=== PATIENT | female | born 1965 | race Caucasian/White ===

== ENCOUNTER 2017-07-12 14:35 | Emergency (ER) | payer OTHER, BC ==
[~2017-07-12] VITALS: Ht 165.1 cm; Wt 72.6 kg
--- OUTSIDE RECORDS SUMMARY | 2017-07-12 14:49 | External Medical Summary Rpt | CCD ---
Demographics Preferred Language Andorran Marital Status Unknown Oriental Orthodox Affiliation Unknown Race Unknown Ethnic Group Unknown Author Author , PIERRE JAY Address Unknown Phone Immunization No patient found.
--- OUTSIDE RECORDS SUMMARY | 2017-07-12 14:49 | External Medical Summary Rpt ---
Author Author PIERRE Lott, [employer] Organization [employer] Address Unknown Phone Unavailable
--- OUTSIDE RECORDS SUMMARY | 2017-07-12 14:49 | External Medical Summary Rpt | CCD ---
Author Author [employer] Organization [employer] Address Unknown Phone Unavailable Purpose Continuity of Care Document - through 2016
--- OUTSIDE RECORDS SUMMARY | 2017-07-12 14:49 | External Medical Summary Rpt | CCD ---
Author Author , PIERRE JAY Address Unknown Phone Purpose Continuity of Care Document - through 2016
--- OUTSIDE RECORDS SUMMARY | 2017-07-12 14:49 | External Medical Summary Rpt | CCD ---
Demographics Preferred Language Albanian Marital Status Unknown Taoist Affiliation Unknown Race Unknown Ethnic Group Unknown Author Author , PIERRE JAY Address Unknown Phone Immunization No patient found.
[2017-07-12] MEDS ORDERED: LISINOPRIL 10MG10 MG PO (15:22)
--- NOTE | 2017-07-12 15:49 | RADIOLOGY REPORT PS360 ---
[id number] (RING)-3 VIEWS HISTORY: Post traumatic pain and bruising INJURIED AT WORK ORDERING PHYSICIAN: ZULMA GONZALEZ APRN PATIENT AGE: 52 years COMPARISON: None FINDINGS: Nondisplaced oblique fracture involves the tuft of the distal phalanx of the fourth digit. Otherwise negative. IMPRESSION: Nondisplaced oblique fracture tuft of distal phalanx of fourth digit
--- NOTE | 2017-07-12 15:59 | Urgent Treatment Center Report ---
History of Present Issue Date/Time Seen by Provider 07/12/17 5948 Visit Reason Pt arrived:Walked Presenting Problem:PT STATES SHE SMASHED HER FINGER IN THE DOOR AT WORK ON 07/11. Location if Accident:Work Onset of symptoms date/time:07/11/17/ or onset unknown for:MEDICAL HX UNKNOWN Have you (or family members/close friends) recently traveled outside the [place]? N If Yes, where/when: Have you had exposure to infectious disease within the past month? TB? Other? Specify: c/o left 4th digit pain, swelling, bruising. Pt is right handed. While at work yesterday, she closed a heavy door and smashed only left 4th digit in door around 2:15. Last night finger throbbing w/ blood present under nail. spouse drilled hole in fingernail and immediate relief. Reports bled for around 2 hours and has bled intermittent since. Tylenol helped yesterday. Hasn't taken anything since last night. 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 Based on swelling and bruising, it was her coworkers that enc visit today. Pt primarily here for xray. Denies change in temp or sensation of finger. "slightly" limited ROM "only in that first knuckle and up though" Source patient Exam Limitations no limitations ALLERGIES Coded Allergies: No Known Allergies (07/12/17) Home Medications Reported Medications LISINOPRIL (Lisinopril) 10 MG PO DAILY History Medical History Immunization HX DT/Tetanus 5-10 Years Ago Surgical Hx Previous Surgery?N Social History Smoking Hx Smoker: Never Smoker Tobacco: No Alcohol Alcohol: No Review of Systems All Other Systems Reviewed and Negative (as appropriate for CC) Constitutional denies fever Musculoskeletal see HPI Skin see HPI Psychiatric/Neurological denies numbness, denies tingling Physical Exam Vital Signs Vital Signs Date Time Temp Pulse Resp B/P Pulse O2 O2 Flow FiO2 Ox Delivery Rate 07/12 1625 98.4 65 20 187/90 100 07/12 1519 98.4 62 20 198/96 99 General Appearance normal appearance, no apparent distress Respiratory Status No: respiratory distress. Cardiovascular no peripheral edema Peripheral Pulses Pulses normal Yes (radial) Extremities generalized swelling throughout left 4th digit, ecchymosis on anterior surface only, marked tenderness localized to distal phalanx, minimal subungual hematoma w/ evidence of trepination, scant sangiouneous drainage, entire finger w/ brisk cap refill, warm, w/ normal sensation, ROM limited only to left fourth digit DIP joint Neurologic alert, no motor/sensory deficits, oriented x 3 Skin intact (see extremity) Medical Decision Making LABS/Meds/Orders Pt receiving controlled substance in ED? No Results/Orders Orders Procedure Date/time Status [facility] STABILIZE JOINT/AREA 07/12 161 Active XRAY/CT/US XRAY/CT/US XRAY finger(s) (left fourth) XR interpretation by reviewed by me, discussed w/radiologist (read report) Xray Results nondisplaced obliqu fracture tuft of distal phalanx of fourth digit Departure Departure Time of Disposition 161 Disposition DC Home or Self Care(routine) Clinical Impression Primary Impression: Fracture of phalanx of left ring finger Qualifiers: Encounter type: initial encounter Fracture type: closed Phalanx: distal Fracture alignment: nondisplaced Qualified Code: S62.665A - Nondisplaced fracture of distal phalanx of left ring finger, initial encounter for closed fracture Condition STABLE Referrals Leroy Haider MD Call ortho first thing in morning. Tell them you were seen in [facility] today and dx with nondisplaced oblique fracture tuft of distal phalanx of fourth digit. Finger splint placed and told to call for follow up. Patient Instructions DI for Finger Fracture, How To Perform RICE (Rest, Ice, Compress, Elevate) Additional Instructions * pt wants to return to work tomorrow. 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 Agrees no use left fourth finger but feels this will not impede the type of work she does. SPlint until follow up with ortho. Discussed compartment syndrome and risk w/ crush injuries. Monitor closely and follow up immediately if cold, increasing pain, lack of feeling, swelling or no longer draining from finger * Rest * ice 15-20 mins 3-4 times a day * finger splint and elevate for support and swelling unless in shower. Be sure not too tight but not too loose either * Elevate as discussed as much as possible to help reduce swelling and therefore , pain * Ibuprofen every 6 hours as needed for pain and inflammation. If you need something more, you can take tylenol every 4 hours as needed as long as your primary care provider has told you it is ok to take both. Discharge Counseling Counseled pt/family regarding diagnosis, test results, medications/RX, home care, follow up needs at 1000
--- NOTE | 2017-07-12 15:59 | Urgent Treatment Center Report ---
History of Present Issue Date/Time Seen by Provider 07/12/17 5828 Visit Reason Pt arrived:Walked Presenting Problem:PT STATES SHE SMASHED HER FINGER IN THE DOOR AT WORK ON 07/11. Location if Accident:Work Onset of symptoms date/time:07/11/17/ or onset unknown for:MEDICAL HX UNKNOWN Have you (or family members/close friends) recently traveled outside the [place]? N If Yes, where/when: Have you had exposure to infectious disease within the past month? TB? Other? Specify: c/o left 4th digit pain, swelling, bruising. Pt is right handed. While at work yesterday, she closed a heavy door and smashed only left 4th digit in door around 2:15. Last night finger throbbing w/ blood present under nail. spouse drilled hole in fingernail and immediate relief. Reports bled for around 2 hours and has bled intermittent since. Tylenol helped yesterday. Hasn't taken anything since last night. 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 Based on swelling and bruising, it was her coworkers that enc visit today. Pt primarily here for xray. Denies change in temp or sensation of finger. "slightly" limited ROM "only in that first knuckle and up though" Source patient Exam Limitations no limitations ALLERGIES Coded Allergies: No Known Allergies (07/12/17) Home Medications Reported Medications LISINOPRIL (Lisinopril) 10 MG PO DAILY History Medical History Immunization HX DT/Tetanus 5-10 Years Ago Surgical Hx Previous Surgery?N Social History Smoking Hx Smoker: Never Smoker Tobacco: No Alcohol Alcohol: No Review of Systems All Other Systems Reviewed and Negative (as appropriate for CC) Constitutional denies fever Musculoskeletal see HPI Skin see HPI Psychiatric/Neurological denies numbness, denies tingling Physical Exam Vital Signs Vital Signs Date Time Temp Pulse Resp B/P Pulse O2 O2 Flow FiO2 Ox Delivery Rate 07/12 1625 98.4 65 20 187/90 100 07/12 1519 98.4 62 20 198/96 99 General Appearance normal appearance, no apparent distress Respiratory Status No: respiratory distress. Cardiovascular no peripheral edema Peripheral Pulses Pulses normal Yes (radial) Extremities generalized swelling throughout left 4th digit, ecchymosis on anterior surface only, marked tenderness localized to distal phalanx, minimal subungual hematoma w/ evidence of trepination, scant sangiouneous drainage, entire finger w/ brisk cap refill, warm, w/ normal sensation, ROM limited only to left fourth digit DIP joint Neurologic alert, no motor/sensory deficits, oriented x 3 Skin intact (see extremity) Medical Decision Making LABS/Meds/Orders Pt receiving controlled substance in ED? No Results/Orders Orders Procedure Date/time Status [facility] ST[facility] JOINT/AREA 07/12 161 Active XRAY/CT/US XRAY/CT/US XRAY finger(s) (left fourth) XR interpretation by reviewed by me, discussed w/radiologist (read report) Xray Results nondisplaced obliqu fracture tuft of distal phalanx of fourth digit Departure Departure Time of Disposition 161 Disposition DC Home or Self Care(routine) Clinical Impression Primary Impression: Fracture of phalanx of left ring finger Qualifiers: Encounter type: initial encounter Fracture type: closed Phalanx: distal Fracture alignment: nondisplaced Qualified Code: S62.665A - Nondisplaced fracture of distal phalanx of left ring finger, initial encounter for closed fracture Condition STABLE Referrals Leroy Haider MD Call ortho first thing in morning. Tell them you were seen in [facility] today and dx with nondisplaced oblique fracture tuft of distal phalanx of fourth digit. Finger splint placed and told to call for follow up. Patient Instructions DI for Finger Fracture, How To Perform RICE (Rest, Ice, Compress, Elevate) Additional Instructions * pt wants to return to work tomorrow. 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 Agrees no use left fourth finger but feels this will not impede the type of work she does. SPlint until follow up with ortho. Discussed compartment syndrome and risk w/ crush injuries. Monitor closely and follow up immediately if cold, increasing pain, lack of feeling, swelling or no longer draining from finger * Rest * ice 15-20 mins 3-4 times a day * finger splint and elevate for support and swelling unless in shower. Be sure not too tight but not too loose either * Elevate as discussed as much as possible to help reduce swelling and therefore , pain * Ibuprofen every 6 hours as needed for pain and inflammation. If you need something more, you can take tylenol every 4 hours as needed as long as your primary care provider has told you it is ok to take both. Discharge Counseling Counseled pt/family regarding diagnosis, test results, medications/RX, home care, follow up needs at [phone]
[2017-07-12 16:25] VITALS: BP 187/90
== END 2017-07-12 16:26 | disposition home or self-care (01) ==
LOC: UTC 14:35
PROC: 2W3KX1Z Immobilization of Left Finger using Splint (ICD-10-PCS; principal; 2017-07-12)
DX: S62.665A Nondisplaced fracture of distal phalanx of left ring finger, initial encounter for closed fracture (principal); W23.0XXA Caught, crushed, jammed, or pinched between moving objects, initial encounter; Y92.69 Other specified industrial and construction area as the place of occurrence of the external cause; Y99.0 Civilian activity done for income or pay